=== PATIENT | female | born 1970 | race Caucasian/White ===

== ENCOUNTER 2020-03-10 16:23 | Emergency (ER) | payer MEDICAID, OTHER ==
[2020-03-10] MEDS ORDERED: morphine 4 MG/ML inj SYRINge IM ONE (16:25)
[2020-03-10] MEDS ORDERED: TETanus/Pertussis (Acell)/Diphther VAC/PF (Tdap-Adult) 0.5ml syringe IMVAC ONE (16:35)
[2020-03-10] MEDS ORDERED: bacitracin 15gm ointment TP ONE (16:35)
[2020-03-10] MEDS ORDERED: ondansetron/PF 4mg/2ml inj IV PRN (16:35)
[2020-03-10] MEDS ORDERED: normal saline 1000ML IV soln IVB ONE (16:35)
[2020-03-10] MEDS ORDERED: ketamine 10mg/ml 20ml inj 20 MG in normal saline 100ml IV soln 98 ML IV ONE (17:00)
[2020-03-10] MEDS: morphine 4 MG/ML inj SYRINge IV PRN ×2 (17:05→19:23)
[2020-03-10] MEDS ORDERED: LIDOcaine 1% 30ml preserv. free vial IJ ONE (17:50)
[2020-03-10 17:54] LABS: BASOPHILS % (AUTO) 0.4 % (0-1); EOSINOPHILS # (AUTO) 0.1 X10'3 (0-0.9); EOSINOPHILS % (AUTO) 1.3 % (0-6); HEMATOCRIT 42.7 % (35.0-45.0); HEMOGLOBIN 14.5 g/dl (12.0-16.0); LYMPHOCYTES # (AUTO) 1.8 X10'3 (1.1-4.8); LYMPHOCYTES % (AUTO) 23.3 % (21-51); MEAN CORPUSCULAR HEMOGLOBIN 28.6 PG (27.0-31.0); MEAN CORPUSCULAR HGB CONC 33.9 g/dL (33.0-36.5); MEAN CORPUSCULAR VOLUME 84.3 FL (78-98); MEAN PLATELET VOLUME 7.7 FL (7.4-10.4); MONOCYTES # (AUTO) 0.5 X10'3 (0-0.9); MONOCYTES % (AUTO) 6.4 % (2-12); NEUTROPHILS # (AUTO) 5.2 X10'3 (1.8-7.7); NEUTROPHILS % (AUTO) 68.6 % (42-75); PLATELET COUNT 304 X10'3 (140-440); RED BLOOD COUNT 5.06 X10'6 (4.20-5.60); RED CELL DISTRIBUTION WIDTH 13.5 % (11.5-14.5); WHITE BLOOD COUNT 7.5 X10'3 (4.5-11.0)
[2020-03-10 18:04] LABS: ALANINE AMINOTRANSFERASE 51 U/L (12-78); ALBUMIN 3.8 G/DL (3.4-5.0); ALKALINE PHOSPHATASE 95 IU/L (46-116); ANION GAP 6 (8-16); ASPARTATE AMINO TRANSFERASE 33 U/L (10-37); BILIRUBIN,TOTAL 0.4 MG/DL (0.1-1.0); BLOOD UREA NITROGEN 13 MG/DL (7-18); BUN/CREATININE RATIO 15.3 (6.6-38.0); CALCIUM 9.2 MG/DL (8.5-10.1); CHLORIDE 106 MMOL/L (99-107); CREATININE 0.85 MG/DL (0.40-0.90); ETHANOL < 0.010 GM/DL (0.0-0.010); GLUCOSE 109 MG/DL (70-104); POTASSIUM 3.4 MMOL/L (3.5-5.1); SODIUM 142 MMOL/L (135-145); TOTAL CARBON DIOXIDE 29.9 MMOL/L (24-32); TOTAL PROTEIN 7.8 G/DL (6.4-8.2); eGFR 71 ML/MIN
[2020-03-10 19:42] VITALS: BP 110/72
[2020-03-10] MEDS: fentaNYL/PF 50MCG/1 ML 2ML syringe IV PRN ×2 (20:16→21:22)
--- NOTE | 2020-03-10 22:10 | NUR ---
Pt report given to [id number] and [facility] Sarah @ [phone] ([phone]). Pt AOx4, cooperative at transfer of care.
== END 2020-03-10 22:13 | disposition short-term general hospital (02) ==
LOC: ER 16:23
DX: S82.142A Displaced bicondylar fracture of left tibia, initial encounter for closed fracture (principal); T14.8XXA Other injury of unspecified body region, initial encounter; Z98.51 Tubal ligation status; Z90.89 Acquired absence of other organs; Z98.890 Other specified postprocedural states; V87.8XXA Person injured in other specified noncollision transport accidents involving motor vehicle (traffic), initial encounter; Y93.I9 Activity, other involving external motion; Y92.89 Other specified places as the place of occurrence of the external cause; Y99.8 Other external cause status
CPT/HCPCS: 36415; 73560; 73700; 80053; 80320; 85025; 90471; 90715; 96365; 96372; 96375; 96376; 99285; J2270; J3010; J7030